=== PATIENT | female | born 1950 | race Caucasian/White ===

== ENCOUNTER → 2016-05-26 | Outpatient (CLI) | payer MEDICARE | END | disposition home or self-care (01) | LOC: LAB 15:13 | PROVIDERS: Internal Medicine Hematology & Oncology | DX: Z01.812 Encounter for preprocedural laboratory examination (principal) ==

== ENCOUNTER → 2016-07-07 | Outpatient (CLI) | payer MEDICARE ==
--- NOTE | ~2016-07-07 | HM ---
[place], [place] HOLTER MONITOR REPORT NAME: ROSALVA LEWIS UNIT #: [id number] ROOM: DOCTOR: GEORGETTE GODDARD MD BIRTHDATE: [birth year] DOS: 07/08/2016 48-HOUR HOLTER MONITOR Study was recorded from 07/05/2016 through 07/07/2016. The recording was analyzed and interpreted on 07/08/2016. REFERRED BY: Dr. Marie for palpitations. PROCEDURE: The patient was studied utilizing a Holter monitor technique for 48 hours. FINDINGS: The basic rhythm is normal sinus with an average heart rate of 67. Heart rate varied in sinus from 51-103 beats per minute. Occasional isolated premature ventricular contractions were noted with two ventricular couplets recorded. No ventricular tachycardia was seen. Occasional premature atrial contractions were noted. The patient did have one episode of Wenckebach phenomenon during sinus rhythm recorded at about 10:15 in the morning on the first day. She did have several short runs of supraventricular tachycardia with rates up to 152 beats per minute. Most of these appeared to be terminated by a blocked PAC. The patient did report a skipped beat associated with PAC. She noted palpitations in bed, but was in sinus rhythm at that time. She also noticed a skipped beat while she was getting changed and unfortunately, the recording was ____ by artifact during that time, but appeared to be in sinus rhythm. IMPRESSION: 1. Normal sinus rhythm with normal rate variation. 2. Occasional premature ventricular contractions without ventricular tachycardia. 3. Occasional premature atrial contractions with several short runs of supraventricular tachycardia lasting up to 14 beats in duration. Most of these were terminated by a blocked PAC. 4. One episode of Wenckebach phenomenon recorded during waking hours. The patient did not report symptoms at that time. 5. The patient reported symptoms of palpitations, at which time she had ____ sinus rhythm. [place], [place] HOLTER MONITOR REPORT NAME: ROSALVA LEWIS UNIT #: [id number] ROOM: DOCTOR: GEORGETTE GODDARD MD BIRTHDATE: [birth year] GEORGETTE GODDARD MD CM:HOLTER:HOLTER MONITOR REPORT [id number] GEORGETTE GODDARD MD
[2016-07-07 16:11] LABS: EOS # 0.2 10*3/uL (0.0-0.4); EOS % 5.2 % (1.0-4.0); HEMATOCRIT 38.4 % (37.0-47.0); HEMOGLOBIN 12.8 g/dl (12.0-16.0); LYMPH # 0.7 10*3/uL (1.3-4.4); LYMPH % 25.8 % (27.0-41.0); MEAN CORPUSCULAR HGB 35.7 pg (27.0-31.0); MEAN CORPUSCULAR HGB CONC 33.3 g/dl (33.0-37.0); MEAN PLATELET VOLUME 12.2 fl (9.6-12.3); MONO # 0.3 10*3/uL (0.1-1.0); MONO % 11.5 % (3.0-9.0); NEUT # 1.6 10*3/uL (2.3-7.9); NEUT % 56.2 % (47.0-73.0); PLATELET COUNT AUTOMATED 55 10*3/uL (130-400); RED BLOOD COUNT 3.59 10*6/uL (4.10-5.10); RED CELL DISTRI WIDTH 13.4 % (0-14.5); WHITE BLOOD COUNT 2.9 10*3/uL (4.8-10.8)
[2016-07-07 16:42] LABS: BILIRUBIN, TOTAL 0.7 mg/dl (0.2-1.0); POTASSIUM 4.5 mmol/L (3.5-5.1)
== END | disposition home or self-care (01) ==
LOC: LAB 15:05
PROVIDERS: Internal Medicine Hematology & Oncology
DX: C79.51 Secondary malignant neoplasm of bone (principal); D61.810 Antineoplastic chemotherapy induced pancytopenia; C83.30 Diffuse large B-cell lymphoma, unspecified site; M81.0 Age-related osteoporosis without current pathological fracture; D64.9 Anemia, unspecified; B19.20 Unspecified viral hepatitis C without hepatic coma; D69.6 Thrombocytopenia, unspecified

== ENCOUNTER → 2016-08-27 | Outpatient (CLI) | payer MEDICARE | END | disposition home or self-care (01) | LOC: MAMMO 01:41 | DX: Z12.31 Encounter for screening mammogram for malignant neoplasm of breast (principal); C79.51 Secondary malignant neoplasm of bone; C83.30 Diffuse large B-cell lymphoma, unspecified site ==

== ENCOUNTER → 2016-12-07 | Outpatient (CLI) | payer MEDICARE ==
[2016-12-08 20:10] LABS: HEPATITIS C QUANTITATION HCV Not Detected IU/mL (.)
== END | disposition home or self-care (01) ==
LOC: LAB 11:52
PROVIDERS: Internal Medicine Hematology & Oncology
DX: Z51.11 Encounter for antineoplastic chemotherapy (principal); C79.51 Secondary malignant neoplasm of bone; C85.80 Other specified types of non-Hodgkin lymphoma, unspecified site; D69.6 Thrombocytopenia, unspecified; B18.2 Chronic viral hepatitis C; D64.9 Anemia, unspecified; M81.0 Age-related osteoporosis without current pathological fracture

== ENCOUNTER → 2017-05-27 | Outpatient (CLI) | payer MEDICARE | END | disposition home or self-care (01) | LOC: US 12:49 | DX: Z13.29 Encounter for screening for other suspected endocrine disorder (principal); C85.13 Unspecified B-cell lymphoma, intra-abdominal lymph nodes ==